=== PATIENT | female | born 1985 | race Two or more races ===

== ENCOUNTER 2017-10-29 14:55 | Emergency (ER) | payer SELFPAY ==
[~2017-10-29] VITALS: Ht 152.4 cm; Wt 77.4 kg
[2017-10-29 15:52] LABS: HCG UR SG 1.029 (1.003-1.030); MICROSCOPIC NOT IND
[2017-10-29 15:56] LABS: BASOPHILS # (AUTO) 0.04 x10^3/uL (0-0.1); BASOPHILS % (AUTO) 1 % (0-1); EOSINOPHILS # (AUTO) 0.27 x10^3/uL (0-0.4); EOSINOPHILS % (AUTO) 4 % (1-7); LYMPHOCYTES # (AUTO) 2.38 x10^3/uL (1-3.4); LYMPHOCYTES % (AUTO) 37 % (22-44); MD NO; MEAN CORPUSCULAR HEMOGLOBIN 32.1 pg (27.0-34.8); MEAN CORPUSCULAR HGB CONC 33.1 g/dL (32.4-35.8); MEAN CORPUSCULAR VOLUME 96.8 fL (80-100); MEAN PLATELET VOLUME 8.4 fL (7.4-10.4); MONOCYTES # (AUTO) 0.38 x10^3/uL (0.2-0.8); MONOCYTES % (AUTO) 6 % (2-9); NEUTROPHILS % (AUTO) 53 % (42-75); PLATELET COUNT 325 x10^3/uL (130-400); RED BLOOD COUNT 4.39 x10^6/uL (3.82-5.3); RED CELL DISTRIBUTION WIDTH 13.8 % (9.6-15.2)
[2017-10-29 15:57] LABS: CULTURE INDICATED? NO
[2017-10-29 16:01] LABS: ALANINE AMINOTRANSFERASE 24 U/L (12-78); ALBUMIN 3.6 g/dL (3.4-5.0); ANION GAP 6 mmol/L (5-15); CALCIUM 8.8 mg/dL (8.5-10.1); CHLORIDE 108 mmol/L (98-107); CREATININE 0.76 mg/dL (0.55-1.02)
[2017-10-29 16:03] LABS: ALKALINE PHOSPHATASE 94 U/L (45-117); BILIRUBIN,TOTAL 0.7 mg/dL (0.2-1.0); TOTAL PROTEIN 7.2 g/dL (6.4-8.2)
[2017-10-29 19:10] VITALS: BP 128/78
== END 2017-10-30 00:12 | disposition home or self-care (01) ==
LOC: ED 19:07
DX: S39.012A Strain of muscle, fascia and tendon of lower back, initial encounter (principal); E86.0 Dehydration; X58.XXXA Exposure to other specified factors, initial encounter; Y93.89 Activity, other specified; Y92.89 Other specified places as the place of occurrence of the external cause; Y99.8 Other external cause status
CPT/HCPCS: 36415; 80053; 81003; 81025; 85025; 99284

== ENCOUNTER 2017-11-27 08:05 | Emergency (ER) | payer OTHER ==
[~2017-11-27] VITALS: Ht 152.4 cm; Wt 79.1 kg
[2017-11-27 09:13] VITALS: BP 120/58
[2017-11-27] MEDS ORDERED: ONDANSETRON ODT 8 MG PO ONE (09:30)
[2017-11-27] MEDS ORDERED: HYDROcodone/APAP 5/325 TABLET PO ONE (09:30)
[2017-11-27] MEDS ORDERED: ONDANSETRON ODT 8 MG ONE (09:31)
[2017-11-27] MEDS ORDERED: HYDROcodone/APAP 5/325 TABLET ONE (09:32)
[2017-11-27 09:42] LABS: MEAN CORPUSCULAR HEMOGLOBIN 32.7 pg (27.0-34.8); MEAN CORPUSCULAR HGB CONC 34.5 g/dL (32.4-35.8); MEAN CORPUSCULAR VOLUME 94.9 fL (80-100); MEAN PLATELET VOLUME 8.6 fL (7.4-10.4); PLATELET COUNT 247 x10^3/uL (130-400); RED CELL DISTRIBUTION WIDTH 13.9 % (9.6-15.2)
[2017-11-27 09:56] LABS: ALBUMIN 3.2 g/dL (3.4-5.0); ANION GAP 8 mmol/L (5-15); CALCIUM 8.1 mg/dL (8.5-10.1); CHLORIDE 106 mmol/L (98-107)
[2017-11-27 10:01] LABS: ALANINE AMINOTRANSFERASE 12 U/L (12-78); ALKALINE PHOSPHATASE 84 U/L (45-117); BILIRUBIN,TOTAL 1.2 mg/dL (0.2-1.0); TOTAL PROTEIN 6.5 g/dL (6.4-8.2)
[2017-11-27 10:03] LABS: BASOPHILS # (AUTO) 0.03 x10^3/uL (0-0.1); BASOPHILS % (AUTO) 0 % (0-1); EOSINOPHILS # (AUTO) 0.01 x10^3/uL (0-0.4); EOSINOPHILS % (AUTO) 0 % (1-7); LYMPHOCYTES # (AUTO) 1.07 x10^3/uL (1-3.4); LYMPHOCYTES % (AUTO) 8 % (22-44); MD SCAN; MONOCYTES # (AUTO) 0.49 x10^3/uL (0.2-0.8); MONOCYTES % (AUTO) 4 % (2-9); NEUTROPHILS # (AUTO) 11.34 x10^3/uL (1.8-6.8); NEUTROPHILS % (AUTO) 88 % (42-75)
[2017-11-27 10:12] LABS: CULTURE INDICATED? YES; HCG UR SG 1.014 (1.003-1.030); MICROSCOPIC AUTO
== END 2017-11-27 10:57 | disposition home or self-care (01) ==
LOC: ED 09:10
DX: N30.90 Cystitis, unspecified without hematuria (principal); M54.5 Low back pain; F17.210 Nicotine dependence, cigarettes, uncomplicated; Z87.442 Personal history of urinary calculi
CPT/HCPCS: 36415; 80053; 81001; 81025; 83690; 85025; 87077; 87086; 99284; Q0162; 87186

== ENCOUNTER 2017-11-28 10:47 | Emergency (ER) | payer SELFPAY ==
[~2017-11-28] VITALS: Ht 152.4 cm; Wt 77.5 kg
[2017-11-28 12:20] LABS: BASOPHILS % (AUTO) 0 % (0-1); EOSINOPHILS # (AUTO) 0.01 x10^3/uL (0-0.4); EOSINOPHILS % (AUTO) 0 % (1-7); LYMPHOCYTES # (AUTO) 1.23 x10^3/uL (1-3.4); LYMPHOCYTES % (AUTO) 9 % (22-44); MD NO; MEAN CORPUSCULAR HEMOGLOBIN 32.3 pg (27.0-34.8); MEAN CORPUSCULAR HGB CONC 34.1 g/dL (32.4-35.8); MEAN CORPUSCULAR VOLUME 94.9 fL (80-100); MEAN PLATELET VOLUME 8.8 fL (7.4-10.4); MONOCYTES # (AUTO) 1.04 x10^3/uL (0.2-0.8); MONOCYTES % (AUTO) 8 % (2-9); NEUTROPHILS # (AUTO) 10.99 x10^3/uL (1.8-6.8); NEUTROPHILS % (AUTO) 83 % (42-75); PLATELET COUNT 231 x10^3/uL (130-400); RED BLOOD COUNT 4.28 x10^6/uL (3.82-5.3); RED CELL DISTRIBUTION WIDTH 13.8 % (9.6-15.2)
[2017-11-28 12:30] LABS: ALBUMIN 3.3 g/dL (3.4-5.0); ANION GAP 8 mmol/L (5-15); CALCIUM 8.9 mg/dL (8.5-10.1); CHLORIDE 104 mmol/L (98-107)
[2017-11-28 12:38] LABS: CREATININE 0.74 mg/dL (0.55-1.02)
[2017-11-28 13:21] VITALS: BP 128/81
[2017-11-28] MEDS ORDERED: ONDANSETRON ODT 4 MG PO ONE (13:30)
[2017-11-28] MEDS ORDERED: KETOROLAC 30 MG/1 ML IVPush ONE (13:30)
[2017-11-28] MEDS ORDERED: ONDANSETRON ODT 4 MG ONE (13:31)
[2017-11-28] MEDS ORDERED: KETOROLAC 30 MG/1 ML ONE ×2 (13:32→13:37)
[2017-11-28 13:44] LABS: CULTURE INDICATED? YES; MICROSCOPIC INDICATED
[2017-11-28] MEDS: KETOROLAC 30 MG/1 ML IM ONE ×2 (13:59→14:00)
== END 2017-11-28 14:38 | disposition home or self-care (01) ==
LOC: ED 13:58
DX: N30.90 Cystitis, unspecified without hematuria (principal)
CPT/HCPCS: 36415; 74176; 80048; 81001; 82040; 84703; 85025; 87086; 96372; 99285; J1885; Q0162

== ENCOUNTER 2018-01-02 17:27 | Emergency (ER) | payer SELFPAY ==
[~2018-01-02] VITALS: Ht 154.9 cm; Wt 72.8 kg
[2018-01-02 17:38] VITALS: BP 116/82
[2018-01-02 18:51] LABS: HCG UR SG 1.029 (1.003-1.030)
[2018-01-02 18:52] LABS: CULTURE INDICATED? YES; MICROSCOPIC INDICATED
== END 2018-01-02 19:53 | disposition home or self-care (01) ==
LOC: ED 19:08
DX: N30.90 Cystitis, unspecified without hematuria (principal)
CPT/HCPCS: 36415; 81001; 81025; 86694; 86695; 86696; 87077; 87086; 87186; 99284